=== PATIENT | female | born 1935 | race African-American/Black ===

== ENCOUNTER 2016-12-10 16:17 | Inpatient (IN) | payer OTHER ==
[~2016-12-10] VITALS: Ht 172.7 cm; Wt 89.1 kg
--- NOTE | ~2016-12-10 | EKG ---
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
--- NOTE | ~2016-12-10 | HC ---
[facility] [address] [place] [address] CONSULTATION Name: MIAN TINOCO Room #: 437-P [facility] IN M.R.#: [id number] Admission: 12/10/16 Attend Phys: Cal Bai DO Discharge: 12/13/16 Date of : 33 Report #: [id number] THIS REPORT FOR: //name// CC: Cal Garcia Sabih DATE OF SERVICE: 12/11/2016 REASON FOR CONSULTATION: End-stage renal disease. HISTORY OF PRESENT ILLNESS: This 81-year-old female has end-stage renal disease secondary to diabetes mellitus and hypertension. She is quite confused. She was transferred from [facility] where she became confused following her dialysis treatment on Saturday. She was evaluated in the Emergency Room and subsequently admitted for further evaluation and treatment. She thinks that her confusion has improved somewhat, but she still has very poor recall and cannot tell me how long she has been on dialysis, where she receives her usual outpatient dialysis treatment or who her regular automatic i threading machine feeder is. She dialyzes via a left forearm AV access. PAST MEDICAL HISTORY: Remarkable for diabetes mellitus and hypertension of longstanding, duration. This is her first [facility] admission. She has a history of congestive heart failure, anemia of chronic kidney disease, generalized osteoarthritis and asthma. MEDICATIONS: On admission to the hospital include calcium with D, tramadol, MiraLax, Tessalon perles, Nephro-Varinder 1 daily, Senna 1 daily, Colace 100 mg b.i.d., ProAir twice daily, Tylenol, Norvasc 10 mg daily and carvedilol 12.5 mg b.i.d. FAMILY HISTORY: Negative for renal disease. PERSONAL AND SOCIAL HISTORY: The patient is a reformed smoker having quit many years ago. She does not use alcohol or have any history of substance abuse. REVIEW OF SYSTEMS: Remarkable for the absence of edema. She denies loss of consciousness or vertigo. She denies shortness of breath, productive cough, hemoptysis, chest pain, palpitations, nausea, vomiting, diarrhea or constipation. PHYSICAL EXAMINATION: GENERAL: Reveals a pleasant elderly female who is resting comfortably in no acute distress. VITAL SIGNS: Blood pressure 148/57, temperature 38.2, pulse 88 and respirations 24. SKIN: Warm and dry without rash or erythema. There is no gross clubbing, [address] [place] [address] CONSULTATION Name: MIAN TINOCO Room #: 437-P [facility] IN .R.#: [id number] Admission: 12/10/16 Attend Phys: Cal Bai DO Discharge: 12/13/16 Date of : 33 Report #: [id number] cyanosis, edema or adenopathy. HEENT: The head is normocephalic and atraumatic. The sclerae are white. The pharynx is benign. NECK: Supple. PULMONARY: Lung carty are grossly clear to percussion and auscultation. CARDIOVASCULAR: Reveals a regular rate and rhythm without rub. ABDOMEN: Soft and nontender. NEUROLOGIC: Reveals the patient to be alert and cooperative with a nonfocal examination. Her recall of the events and history is poor, however. DATA: Laboratory studies available at the time of consultation include sodium 138, potassium 3.9, chloride 98, CO2 of 31, BUN 14, creatinine 4.5, glucose 119 and calcium 9.3. White blood cell count 6800, hemoglobin 10.6, hematocrit 31.2 and platelet count 166,000. Urinalysis reveals 2+ protein, 3+ glucose, 1+ blood, 1-9 bacteria per high power field. Urine culture reveals no growth. ASSESSMENT AND PLAN: 1. Confusion in this elderly diabetic dialysis patient of undetermined etiology. Imaging studies including CT scan revealed atrophy and extensive white matter ischemic changes with no acute intracranial process. Specifically, there was no hemorrhage seen. We will arrange dialysis in the morning. I have coordinated care with the dialysis service. 2. Diabetes mellitus. 3. Hypertension. 4. Confusion. 5. Chronic obstructive pulmonary disease. We will provide renal support for the patient while hospitalized. Please see orders. <ELECTRONICALLY SIGNED> By: Geoffrey Elizalde MD 12/19/16 0642 1745 1843 Geoffrey Elizalde MD /nt
--- NOTE | ~2016-12-10 | 2DMMODE ---
[facility] [place] [place] [address] 2 D/M-MODE ECHOCARDIOGRAM Name: MIAN TINOCO Room #: 437-P [facility] IN M.R.#: [id number] Admission: 12/10/16 Attend Phys: Cal Bai, Discharge: Date of : 33 Date of Service: 12/13/16 1606 Report #: [id number] THIS REPORT FOR: //name// Transthoracic Echocardiography Ordering physician: Cal Bai Referring physician: Radha Russell James D. Electromatic Typist: Constance Clifford Indications/History: Dyspnea. Hx: HTN, HLP BP: 145 / HR: 89bpm Height: 68in Weight: 196.6lb 57 Study data: M-mode, complete 2D, complete spectral Doppler, and color Doppler. Location: Echo laboratory. Routine. Image quality was adequate. 2D measurements Normal Normal LVID ED 46.1mm 36-57 IVS ED 12mm 6-11 LVID ES 33.5mm 23-40 LVPW ED 11.9mm 6-11 LA volume 37ml/m2 16-28 AoRoot diam 33.1mm 21-37 index ED LVOT diameter 22mm 18-23 Findings: Left ventricle: The cavity size was normal. Wall thickness was increased in a pattern of mild LVH. Systolic function was normal. The estimated ejection fraction was in the range of 55% to 60%. Wall motion was normal. Right ventricle: The cavity size was normal. Systolic function was normal. Right atrium: The atrium was normal in size. Left atrium: The atrium was mildly dilated. Volume index: 37ml/m2 (S). Aortic valve: Structurally normal valve. Mildly sclerotic leaflets. Doppler: There was no stenosis. No regurgitation. Peak velocity: 176.3cm/s (S). [facility] [address] [place] [address] 2 D/M-MODE ECHOCARDIOGRAM Name: MIAN TINOCO Room #: 437-P [facility] IN M.R.#: [id number] Admission: 12/10/16 Attend Phys: Cal Bai, Discharge: Date of : 33 Date of Service: 12/13/16 1606 Report #: [id number] gradient: 12.4mm Hg (S). Mitral valve: Mildly calcified annulus. Mildly thickened leafletswith focal echodensity likely MAC Doppler: There was no evidence for stenosis. Mild regurgitation. Peak E-wave velocity: 107.4cm/s. Peak gradient: 4.6mm Hg (D). Peak A-wave velocity: 134.4cm/s. Tricuspid valve: Structurally normal valve. Doppler: There was no evidence for stenosis. Mild-moderate regurgitation. Regurgitant peak velocity: 316cm/s. Peak RV-RA gradient: 40mm Hg (S). Pulmonic valve: Structurally normal valve. Doppler: There was no evidence for stenosis. Trivial regurgitation. Pericardium: A small pericardial effusion was identified posterior to the heart, anterior to the heart, and along the right ventricular free wall. Aorta: Aortic root: The aortic root was normal in size. Pulmonary artery: Systolic pressure was estimated to be 50mm Hg. Diastolic function: Doppler parameters are consistent with abnormal left ventricular relaxation (grade 1 diastolic dysfunction). Systemic veins: Inferior vena cava: The vessel was dilated; the respirophasic diameter changes were blunted (< 50%). Conclusions 1. Left ventricle: The cavity size was normal. Wall thickness was increased in a pattern of mild LVH. Systolic function was normal. The estimated ejection fraction was in the range of 55% to 60%. 2. Left atrium: The atrium was mildly dilated. 3. Aortic valve: Structurally normal valve. Mildly sclerotic leaflets. 4. Mitral valve: Mildly calcified annulus. Mildly thickened leafletswith focal echodensity likely MAC 5. Tricuspid valve: Structurally normal valve. Mild-moderate regurgitation. 6. Pericardium, extracardiac: A small pericardial effusion was identified posterior to the heart, anterior to the heart, and along the right ventricular free wall. 7. Pulmonary arteries: Systolic pressure was estimated to be 50mm Hg. [facility] [address] [place] [address] [place] [address] 2 D/M-MODE ECHOCARDIOGRAM Name: ALEX TINOCOILLA Room #: 437-P [facility] IN .R.#: [id number] Admission: 12/10/16 Attend Phys: Cal Bai, Discharge: Date of : 33 Date of Service: 12/13/161605 Report #: [id number] 8. Inferior vena cava: The vessel was dilated; the respirophasic diameter changes were blunted (< 50%). <ELECTRONICALLY SIGNED> By: Reginald Rivera MD 12/13/161735 05 35 Reginald Rivera MD /kevon
[2016-12-10 16:17] VITALS: BP 175/119
[~2016-12-10 16:17] MED LIST: COLACE100 MG PO; COREG12.5 MG PO; LIDOCAINE-PRIL1 EACH TP; MIRALAX17 GM PO; NEPHRO-VITE RX1 TA1 PO; NORVASC10 MG PO; OYSTER SHELL 51 EACH PO; PROAIR HFA8.5 GM INH; SENNA8.6 MG PO; TESSALON PERLE100 MG PO; TRAMADOL 50 MG50 MG PO; TYLENOL325 MG PO
[2016-12-10 17:19] LABS: HEMATOCRIT 31.2 % (37.0-47.0); HEMOGLOBIN 10.6 gm/dL (12.0-15.0); MCH 32.1 pg (26.0-34.0); MCHC 33.8 % (28.0-37.0); MCV 95.1 fL (80.0-100.0); PLATELET COUNT 166 thou/uL (150-400); RBC 3.28 mil/uL (4.20-5.00); RDW 14.5 % (10.5-14.5); WBC 6.8 thou/uL (4.0-11.0)
[2016-12-10 17:23] LABS: MANUAL DIFF YES
[2016-12-10 17:28] LABS: CALCIUM 9.3 mg/dL (8.5-10.1); CREATININE 4.5 mg/dL (0.6-1.3); POTASSIUM 3.9 mmol/L (3.5-5.1)
[2016-12-10 17:33] LABS: URINE BILIRUBIN NEGATIVE (Negative); URINE BLOOD 1+ (Negative); URINE COLOR YELLOW; URINE GLUCOSE-RANDOM* 3+ (Negative); URINE KETONES NEGATIVE (Negative); URINE LEUKOCYTES-REFLEX TRACE (Negative); URINE PROTEIN (DIPSTICK) 2+ (Negative); URINE UROBILINOGEN 0.2 E.U./dl (0.2-1.0)
[2016-12-10 17:57] LABS: CASTS None Seen /LPF (None Seen); CRYSTALS None Seen /LPF (None Seen); SQUAMOUS >10 Many /LPF (0-3); URINE RBC 0-2 Rare /HPF (0-2); URINE WBC-REFLEX 0-5 Rare /HPF (0-5)
[2016-12-10 18:01] LABS: LARGE PLATELETS FEW; TOTAL CELL COUNT 100
[2016-12-10 19:41] VITALS: BP 185/75
[2016-12-10 19:45] VITALS: BP 168/74
[2016-12-10 23:20] VITALS: BP 168/65
[2016-12-11 03:30] VITALS: BP 176/77
[2016-12-11 06:47] VITALS: BP 148/61
[2016-12-11 08:00] VITALS: BP 165/67
[2016-12-11 12:00] VITALS: BP 116/53
[2016-12-11 16:00] VITALS: BP 148/57
[2016-12-11 20:27] VITALS: BP 128/77
[2016-12-12 03:20] VITALS: BP 165/52
[2016-12-12 05:29] LABS: HEMATOCRIT 27.9 % (37.0-47.0); HEMOGLOBIN 9.1 gm/dL (12.0-15.0); MCHC 32.7 % (28.0-37.0); MCV 97.7 fL (80.0-100.0); PLATELET COUNT 126 thou/uL (150-400); RBC 2.86 mil/uL (4.20-5.00); RDW 14.9 % (10.5-14.5); WBC 4.1 thou/uL (4.0-11.0)
[2016-12-12 05:41] LABS: MANUAL DIFF YES
[2016-12-12 06:09] LABS: ALBUMIN 3.1 g/dL (3.4-5.0); CALCIUM 8.3 mg/dL (8.5-10.1); PHOSPHORUS 5.6 mg/dL (2.5-4.9); POTASSIUM 4.2 mmol/L (3.5-5.1)
[2016-12-12 06:29] LABS: CREATININE 8.6 mg/dL (0.6-1.3)
[2016-12-12 07:51] LABS: ABSOLUTE NEUTROPHILS 2.5 thou/uL (1.4-8.2); ANISOCYTOSIS 1+; PLATELET ESTIMATE DECREASED; TOTAL CELL COUNT 100
[2016-12-12 13:23] VITALS: BP 147/70
[2016-12-12 16:26] VITALS: BP 125/54
[2016-12-12 19:36] VITALS: BP 143/66
[2016-12-13 02:53] VITALS: BP 194/78
[2016-12-13 03:15] VITALS: BP 144/67
[2016-12-13 04:42] LABS: HEMATOCRIT 30.5 % (37.0-47.0); MCH 32.3 pg (26.0-34.0); MCHC 32.7 % (28.0-37.0); MCV 98.7 fL (80.0-100.0); PLATELET COUNT 131 thou/uL (150-400); RBC 3.09 mil/uL (4.20-5.00); RDW 14.5 % (10.5-14.5); WBC 3.7 thou/uL (4.0-11.0)
[2016-12-13 04:54] LABS: MANUAL DIFF YES
[2016-12-13 05:01] LABS: CALCIUM 8.3 mg/dL (8.5-10.1); POTASSIUM 4.1 mmol/L (3.5-5.1)
[2016-12-13 05:06] LABS: CREATININE 4.8 mg/dL (0.6-1.3)
[2016-12-13 08:00] VITALS: BP 171/67
[2016-12-13 08:37] LABS: ABSOLUTE NEUTROPHILS 1.5 thou/uL (1.4-8.2); TOTAL CELL COUNT 100
[2016-12-13 08:38] LABS: ANISOCYTOSIS SLIGHT
[2016-12-13 12:00] VITALS: BP 145/57
[2016-12-13] MEDS ORDERED: ALBUTEROL2.5 MG/0.5 INH (14:23)
[2016-12-13 16:00] VITALS: BP 151/47
== END 2016-12-13 17:41 | DRG 291 ==
LOC: ER 16:17 → EROBS 18:28 → 4S 18:28
PROVIDERS: Emergency Medicine; Family Medicine
PROC: 5A1D00Z (ICD-10-PCS; principal; 2016-12-12)
DX: I50.33 Acute on chronic diastolic (congestive) heart failure (principal); N18.6 End stage renal disease; I13.2 Hypertensive heart and chronic kidney disease with heart failure and with stage 5 chronic kidney disease, or end stage renal disease; D63.8 Anemia in other chronic diseases classified elsewhere; M19.90 Unspecified osteoarthritis, unspecified site; J45.909 Unspecified asthma, uncomplicated; J44.9 Chronic obstructive pulmonary disease, unspecified; F03.90 Unspecified dementia, unspecified severity, without behavioral disturbance, psychotic disturbance, mood disturbance, and anxiety; E11.22 Type 2 diabetes mellitus with diabetic chronic kidney disease; Z88.6 Allergy status to analgesic agent; Z88.8 Allergy status to other drugs, medicaments and biological substances; Z99.2 Dependence on renal dialysis; Z87.891 Personal history of nicotine dependence; Z79.899 Other long term (current) drug therapy
CPT/HCPCS: 10100; 32100

== ENCOUNTER 2017-06-11 07:47 | Emergency (ER) | payer OTHER ==
[~2017-06-11] VITALS: Ht 172.7 cm; Wt 99.8 kg
[~2017-06-11 07:47] MED LIST changes: +ALBUTEROL2.5 MG/0.5 INH
== END 2017-06-11 12:05 ==
LOC: ER 07:47
DX: S46.912A Strain of unspecified muscle, fascia and tendon at shoulder and upper arm level, left arm, initial encounter (principal); S09.90XA Unspecified injury of head, initial encounter; I13.2 Hypertensive heart and chronic kidney disease with heart failure and with stage 5 chronic kidney disease, or end stage renal disease; E11.22 Type 2 diabetes mellitus with diabetic chronic kidney disease; N18.6 End stage renal disease; J45.909 Unspecified asthma, uncomplicated; Z99.2 Dependence on renal dialysis; Z88.5 Allergy status to narcotic agent; Z88.8 Allergy status to other drugs, medicaments and biological substances; Z87.891 Personal history of nicotine dependence; W18.09XA Striking against other object with subsequent fall, initial encounter; Y93.89 Activity, other specified; Y92.89 Other specified places as the place of occurrence of the external cause; Y99.8 Other external cause status

== ENCOUNTER 2017-07-28 12:05 | Emergency (ER) | payer OTHER ==
[~2017-07-28] VITALS: Ht 170.2 cm; Wt 77.6 kg
== END 2017-07-28 14:45 | disposition home or self-care (01) ==
LOC: ER 12:05
DX: M25.561 Pain in right knee (principal); M25.562 Pain in left knee; M25.512 Pain in left shoulder; I13.2 Hypertensive heart and chronic kidney disease with heart failure and with stage 5 chronic kidney disease, or end stage renal disease; E11.22 Type 2 diabetes mellitus with diabetic chronic kidney disease; N18.6 End stage renal disease; I50.9 Heart failure, unspecified; J45.909 Unspecified asthma, uncomplicated; M19.90 Unspecified osteoarthritis, unspecified site; Z99.2 Dependence on renal dialysis; Z87.891 Personal history of nicotine dependence; Z88.5 Allergy status to narcotic agent; Z88.8 Allergy status to other drugs, medicaments and biological substances